=== PATIENT | female | born 1980 | race African-American/Black ===

== ENCOUNTER 2018-02-09 12:22 | Emergency (ER) | payer SELFPAY ==
[~2018-02-09] VITALS: Ht 170.2 cm; Wt 65.0 kg
[2018-02-09 13:50] VITALS: BP 109/88
== END 2018-02-09 19:30 | disposition left against medical advice (07) ==
LOC: ER 12:22
DX: Z53.21 Procedure and treatment not carried out due to patient leaving prior to being seen by health care provider (principal)

== ENCOUNTER 2025-05-25 05:19 | Emergency (ER) | payer MEDICAID ==
[~2025-05-25] VITALS: Ht 175.3 cm; Wt 84.0 kg
[2025-05-25 05:24] VITALS: O2SAT 98
[2025-05-25] MEDS: KETOROLAC 15MG/ML VIAL IV ONE (06:14)
[2025-05-25 07:01] LABS: BASOPHILS % 0.6 % (0.0-2.0); EOSINOPHILS % 3.5 % (0.0-5.0); HEMATOCRIT. 38.9 % (36.0-48.0); HEMOGLOBIN. 12.9 g/dL (12.0-16.0); LYMPHOCYTES % 35.4 % (20.0-50.0); MEAN PLATELET VOLUME 8.4 fl (7.4-10.4); MONOCYTES % 9.3 % (2.0-8.0); NEUTROPHILS % 51.2 % (40.0-76.0); PLATELET 321 x1000/uL (130-400); RED BLOOD CELL COUNT 4.44 mill/uL (4.2-5.4); RED CELL DISTRIBUTION WIDTH 12.9 % (11.6-14.6)
[2025-05-25 07:21] LABS: CREATININE 0.8 mg/dL (0.6-1.0); HCG SCREEN NEGATIVE; UREA NITROGEN BLOOD 9 mg/dL (9-23)
[2025-05-25 07:24] LABS: TROPONIN I HIGH SENSITIVITY < 4 ng/L (3.0-34)
[2025-05-25 08:52] LABS: TROPONIN I HIGH SENSITIVITY < 4 ng/L (3.0-34)
[2025-05-25] MEDS ORDERED: IBUP-1455 PO (09:12)
[2025-05-25 10:56] VITALS: BP 105/50; PULSE 81; RESP 16; TEMP 36.7; O2SAT 98
== END 2025-05-25 10:58 | disposition home or self-care (01) ==
LOC: ER 05:19 → CMPBEDREQ 11:41
DX: R07.9 Chest pain, unspecified (principal); F12.90 Cannabis use, unspecified, uncomplicated
CPT/HCPCS: 99285; 96374; 71045; 80048; 84703; 85025; 85379; 84484; 36415; 93005; J1885